=== PATIENT | male | born 1955 | race African-American/Black ===

== ENCOUNTER 2017-08-30 04:09 | Emergency (ER) | payer OTHER ==
[~2017-08-30] VITALS: Ht 188 cm; Wt 79.0 kg
[2017-08-30 09:55] VITALS: BP 153/107
== END 2017-08-30 10:19 | disposition home or self-care (01) ==
LOC: ER 04:09
DX: K40.90 Unilateral inguinal hernia, without obstruction or gangrene, not specified as recurrent (principal); F12.10 Cannabis abuse, uncomplicated
CPT/HCPCS: 99283